=== PATIENT | male | born 1995 ===

== ENCOUNTER 2024-04-18 18:00 | Emergency (ER) | payer OTHER ==
[2024-04-18] MEDS ORDERED: Sodium Chloride 0.9% 2.5 ML Syringe FLUSH PRN (18:11)
[2024-04-18] MEDS ORDERED: Sodium Chloride 0.9% 10 ML Syringe FLUSH PRN (18:11)
[2024-04-18] MEDS: metroNIDAZOLE 250 MG Tab PO ONE (18:28)
[2024-04-18] MEDS: Ketorolac 30 MG/ML SDV IVPUSH ONE (18:29)
[2024-04-18] MEDS: Ondansetron 4 MG/2 ML SDV IVPUSH ONE (18:29)
[2024-04-18] MEDS: Sodium Chloride 0.9% 1,000 ML IV ONE (18:30)
[2024-04-18 18:51] LABS: A/G RATIO 1.2 (0.9-1.6); BILIRUBIN TOTAL 0.8 mg/dL (0.2-1.0); CALCIUM 8.4 mg/dL (8.5-10.1); CARBON DIOXIDE,CO2 20.7 mmol/L (21.0-32.0); CREATININE 1.3 mg/dL (0.8-1.3); EST CRCL DRUG DOSING (CG) 109.37 mL/min; POTASSIUM,K 3.1 mmol/L (3.5-5.1); PROTEIN TOTAL,TP 7.4 g/dL (6.4-8.2)
[2024-04-18 18:52] LABS: HEMATOCRIT 43.7 % (42.0-52.0); HEMOGLOBIN 15.7 g/dL (14.0-18.0); MEAN CORPUSCULAR HEMOGLOBIN 31.5 pg (28.0-32.0); MEAN CORPUSCULAR HGB CONC 35.9 g/dL (32.0-36.0); MEAN CORPUSCULAR VOLUME 87.6 fL (83.0-99.0); MEAN PLATELET VOLUME 9.7 fL (9.4-12.4); PLATELET COUNT,PLT 159 K/uL (150-400); RED BLOOD CELL COUNT 4.99 M/uL (4.52-5.90); WHITE BLOOD CELL COUNT,WBC 4.66 K/uL (3.9-11.3)
[2024-04-18] MEDS: metroNIDAZOLE 250 MG Tab ONE (18:56)
[2024-04-18 19:13] LABS: SEG NEUTROPHILS ABSOLUTE MAN 3.82 K/uL (1.80-7.70); SEG NEUTROPHILS PERCENT MAN 82 % (41-71)
[2024-04-18 19:14] LABS: EOSINOPHILS ABSOLUTE MAN 0.14 K/uL (0.00-0.45); EOSINOPHILS PERCENT MAN 3 % (0-6); LYMPHOCYTES ABSOLUTE MAN 0.51 K/uL (1.00-4.80); LYMPHOCYTES PERCENT MAN 11 % (24-44); MONOCYTES ABSOLUTE MAN 0.19 K/uL (0.00-0.80); MONOCYTES PERCENT MAN 4 % (0-8)
[2024-04-18] MEDS: Potassium Chloride 20 MEQ Tab.ER PO ONE (20:18)
== END 2024-04-18 21:00 | disposition home or self-care (01) ==
LOC: MW.ED 18:00
DX: E86.0 Dehydration (principal); E87.6 Hypokalemia; Z86.16 Personal history of COVID-19; Z79.899 Other long term (current) drug therapy; Z75.8 Other problems related to medical facilities and other health care
CPT/HCPCS: 36415; 80053; 83630; 85025; 87045; 87046; 87324; 87428; 87449; 87899; 96361; 96374; 96375; 99284; A9270; J1885; J2405; J7030; 99283